=== PATIENT | female | born 1975 | race Caucasian/White ===

== ENCOUNTER 2023-10-28 05:26 | Observation (INO) | payer BC ==
[2023-10-22 14:36] LABS: BASOPHILS % (AUTO) 0.2 % (0-1); LYMPHOCYTES # (AUTO) 1.2 X10'3 (1.1-4.8); MEAN CORPUSCULAR HEMOGLOBIN 31.9 PG (27.0-31.0); MEAN PLATELET VOLUME 9.6 FL (7.4-10.4); MONOCYTES # (AUTO) 0.2 X10'3 (0-0.9); MONOCYTES % (AUTO) 5.5 % (2-12); NEUTROPHILS % (AUTO) 66.3 % (42-75); PRE OP HEMOGLOBIN 13.9 g/dL (12.0-16.0); PRE OP PLATELET COUNT 144 X10'3 (140-440); PRE OP WHITE BLOOD COUNT 4.5 10'3 (4.8-10.8); RED BLOOD COUNT 4.36 X10'6 (4.20-5.60); RED CELL DISTRIBUTION WIDTH 12.3 % (11.5-14.5)
[2023-10-22 14:50] LABS: PRE OP PROTIME 11.2 SECONDS (9.0-12.0)
[2023-10-22 14:57] LABS: ALBUMIN 3.6 G/DL (3.4-5.0); ALBUMIN/GLOBULIN RATIO 1.2 (1.1-1.5); ALKALINE PHOSPHATASE 66 IU/L (46-116); BLOOD UREA NITROGEN 14 MG/DL (7-18); CALCIUM 8.3 MG/DL (8.5-10.1); CHLORIDE 106 MMOL/L (99-107); PRE OP ALT 20 U/L (30-65); PRE OP ANION GAP 5 (8-16); PRE OP AST 14 U/L (10-37); PRE OP BILIRUB, TOTAL 0.3 MG/DL (0.0-1.0); PRE OP GLUCOSE 128 MG/DL (70-104); PRE OP POTASSIUM 3.6 MMOL/L (3.4-5.1); PRE OP SODIUM 142 MMOL/L (135-145); THYROID STIMULATING HORMONE 0.42 ulU/ml (0.34-4.50); TOTAL CARBON DIOXIDE 31.1 MMOL/L (24-32); TOTAL PROTEIN 6.7 G/DL (6.4-8.2); eGFR 90 ML/MIN
[2023-10-28] VITALS (36 sets, daily range): BP systolic 98–119; BP diastolic 62–80; PULSE 59–86; RESP 12–18; TEMP 97.6–98.4; O2SAT 95–100
[~2023-10-28] VITALS: Ht 167.6 cm; Wt 71.4 kg
[~2023-10-28 05:26] MED LIST: ALBU8HFA INH; EXEM25TA PO; LANS30CA56 PO; LEVO175T7 PO
[2023-10-28] MEDS: famotidine 20mg tablet PO ONE (06:10)
[2023-10-28] MEDS: cefazolin 2gm/D5W 100mL 100 ML IV ONE (06:10)
[2023-10-28] MEDS: ringers solution, lacted 1,000 ML IV SCH ×2 (06:10→13:22)
[2023-10-28] MEDS ORDERED: methylene blue (5mg/ml) 50mg/10ml ampul IV ONE (06:41)
[2023-10-28] MEDS ORDERED: BUPIVACAINE liposomal/PF 13.3 MG/ML vial IM ONE (06:42)
[2023-10-28] MEDS ORDERED: albuterol 2.5 MG/3 ML nebule NEB ONE (07:15)
[2023-10-28] MEDS ORDERED: midazolam 1 mg/ML 2ml injection ONE (07:18)
[2023-10-28] MEDS ORDERED: fentaNYL/PF 50MCG/1 ML 2ML syringe ONE ×3 (07:18→08:27)
[2023-10-28] MEDS ORDERED: morphine 4 MG/ML inj SYRINge IV PRN (07:25)
[2023-10-28] MEDS ORDERED: hydrALAZINE 20mg/ml inj. IV PRN (07:25)
[2023-10-28] MEDS ORDERED: labetalol 20mg/4ml (5mg/ml) syringe IV PRN (07:25)
[2023-10-28] MEDS ORDERED: fentaNYL/PF 50MCG/1 ML 2ML syringe IV PRN (07:25)
[2023-10-28] MEDS ORDERED: sevoflurane 250ml liquid IH ONE (07:37)
[2023-10-28] MEDS ORDERED: BUPIVAcaine 0.5% inj/PF 30 ML ONE (07:40)
[2023-10-28] MEDS ORDERED: LIDOcaine 2% (20mg/ml) 5ml vial ONE (08:02)
[2023-10-28] MEDS ORDERED: propofol inj 20 ML IV ONE (08:02)
[2023-10-28] MEDS ORDERED: acetaminophen 1,000mg/100ml IV 100 ML IV ONE (08:02)
[2023-10-28] MEDS ORDERED: ketorolac trometh. 30mg/ml inj. ONE (08:16)
[2023-10-28] MEDS ORDERED: ondansetron/PF 4mg/2ml inj ONE (08:20)
[2023-10-28] MEDS ORDERED: dexamethasone sod phosphate 4mg/ml inj. ONE (08:20)
[2023-10-28] MEDS: BUPIVAcaine/PF 2.5mg/ml (0.25%) 10ml vial ONE (08:29)
[2023-10-28] MEDS ORDERED: ondansetron/PF 4mg/2ml inj IV PRN (09:50)
[2023-10-28] MEDS ORDERED: morphine 2 MG/ML inj. syringe IV PRN (09:50)
[2023-10-28] MEDS: ondansetron/PF 4mg/2ml inj IV PRN (10:06)
[2023-10-28] MEDS: morphine 2 MG/ML inj. syringe IV PRN (10:30)
[2023-10-28] MEDS: fentaNYL/PF 50MCG/1 ML 2ML syringe IV PRN (13:21)
[2023-10-28] MEDS: ceFAZolin/D5W- 1GM premix 50 ML IV SCH (17:40)
[2023-10-28] MEDS: HYDROcodone/acetaminophen 5mg/325mg tablet PO PRN (19:39)
[2023-10-29 02:38] VITALS: BP 94/48; PULSE 75; RESP 17; TEMP 98.3; O2SAT 97
[2023-10-29 06:00] VITALS: BP 113/74; PULSE 95; RESP 17; TEMP 97.2; O2SAT 100
[2023-10-29 08:00] VITALS: RESP 15; O2SAT 100
[2023-10-29 13:21] VITALS: RESP 16
== END 2023-10-29 13:30 | disposition home or self-care (01) ==
LOC: PAS 05:26 → PAS IN 10:00 → ORTHO 4S 16:45
PROVIDERS: ADMIT Surgery; ATTEND Surgery
DX: C50.912 Malignant neoplasm of unspecified site of left female breast (principal); Z17.0 Estrogen receptor positive status [ER+]; Z85.3 Personal history of malignant neoplasm of breast; Z90.13 Acquired absence of bilateral breasts and nipples; Z79.899 Other long term (current) drug therapy
CPT/HCPCS: 19303; 36415; 38525; 38792; 80053; 82948; 84443; 85025; 85610; 85730; 87081; 93005; 96365; 96366; 96375; G0378; J0131; J0690; J1100; J1885; J2250; J2270; J2405; J2704; J3010; J3490; J7120; Q9968; A4215; A4618; A6253; A6258; A6446; A6449; A7000; C9250; C9290; S0020